=== PATIENT | female | born 1945 | race African-American/Black ===

== ENCOUNTER 2023-07-26 06:16 | Day surgery (SDC) | payer MEDICARE, SELFPAY ==
[2023-07-07 08:42] LABS: % Basophils 0.7 % (0-2); % Eosinophils 2.4 % (0-6); % Immature Granulocytes 0.2 % (0-0.5); % Lymphocytes 30.8 % (20.5-51.1); % Monocytes 6.1 % (1.7-9.3); % Neutrophils 59.8 % (42.2-75.2); Absolute Basophils 0.1 10^3/uL (0-0.2); Absolute Eosinophils 0.3 10^3/uL (0-0.7); Absolute Lymphocytes 3.2 10^3/uL (1.2-3.4); Absolute Monocytes 0.6 10^3/uL (0.1-0.6); Absolute Neutrophils 6.2 10^3/uL (1.4-6.5); Mean Corp Hgb Conc. 33.3 g/dL (33.0-37.0); Mean Corpuscular Hgb 29.6 pg (27.0-31.0); Mean Corpuscular Volume 88.8 fL (81.0-99.0); Mean Platelet Volume 12.2 fL (7.4-10.4); Nucleated Red Blood Cells % 0 %; Platelet Count 197 10^3/uL (130-400); Red Blood Cell Count 4.39 10^6/uL (4.20-5.40); Red Cell Dist. Width 14.4 % (11.5-14.5); White Blood Cell Count 10.4 10^3/uL (4.8-10.8)
[2023-07-07 08:57] VITALS: BMI 26.7
[2023-07-07 09:02] LABS: Blood Urea Nitrogen 25 mg/dl (7-17); Calcium 10.5 mg/dl (8.4-10.2); Carbon Dioxide 28 mmol/L (22-30); Chloride 104 mmol/L (98-107); Estimated Creatinine Clearance 41 ml/min; Glucose 88 mg/dl (70-99); Potassium 4.6 mmol/L (3.5-5.1); Sodium 138 mmol/L (135-145); eGFR 52.08
[2023-07-26 08:43] VITALS: BMI 26.7
[2023-07-26 08:44] VITALS: BP 138/76
[2023-07-26] MEDS: CELEBREX 200 MG PO (08:51)
[2023-07-26] MEDS: NORMOSOL-R 1000 IV (08:51)
[2023-07-26] MEDS: TYLENOL 1000 MG PO (08:51)
[2023-07-26 11:40] VITALS: BP 147/66
[2023-07-26 11:41] VITALS: BP 147/66
[2023-07-26 12:05] VITALS: BP 120/56
[2023-07-26 12:35] VITALS: BP 125/64
== END 2023-07-26 12:46 | disposition home or self-care (01) ==
LOC: SDS 06:16
PROVIDERS: ATTENDING PHYSICIAN Orthopaedic Surgery Hand Surgery; FAMILY PHYSICIAN Family Medicine
DX: S46.012A Strain of muscle(s) and tendon(s) of the rotator cuff of left shoulder, initial encounter (principal); X58.XXXA Exposure to other specified factors, initial encounter; M75.41 Impingement syndrome of right shoulder
CPT/HCPCS: 29827; 29828; 29823; 36415; 80048; 85025; 93005; C1713

== ENCOUNTER → 2023-11-23 14:47 | Outpatient (REF) | payer MEDICARE, SELFPAY | LOC: HWWDC 14:47 | PROVIDERS: ATTENDING PHYSICIAN Internal Medicine Hematology & Oncology; FAMILY PHYSICIAN Family Medicine | DX: Z12.31 Encounter for screening mammogram for malignant neoplasm of breast (principal) | CPT/HCPCS: 77063; 77067 ==

== ENCOUNTER → 2024-08-10 13:22 | Outpatient (REF) | payer MEDICARE, SELFPAY | LOC: MRI 3T 13:22 | PROVIDERS: ATTENDING PHYSICIAN Specialist; FAMILY PHYSICIAN Family Medicine | DX: M17.0 Bilateral primary osteoarthritis of knee (principal); Z85.3 Personal history of malignant neoplasm of breast | CPT/HCPCS: 73721 ==

== ENCOUNTER 2024-09-23 06:13 | Day surgery (SDC) | payer MEDICARE, SELFPAY ==
[2024-09-03 14:17] VITALS: BMI 25.9
[2024-09-03 14:19] LABS: Hematocrit 39.4 % (37.0-47.0); Hemoglobin 12.6 g/dL (12.0-16.0); Mean Corpuscular Hgb 27.9 pg (27.0-31.0); Mean Corpuscular Volume 87.4 fL (81.0-99.0); Mean Platelet Volume 12.4 fL (7.4-10.4); Platelet Count 204 10^3/uL (130-400); Red Blood Cell Count 4.51 10^6/uL (4.20-5.40); Red Cell Dist. Width 13.8 % (11.5-14.5); White Blood Cell Count 10.8 10^3/uL (4.8-10.8)
[2024-09-03 14:45] LABS: ALT (SGPT) 22 U/L (0-35); AST (SGOT) 23 U/L (14-36); Albumin 4.2 g/dl (3.5-5.0); Alkaline Phosphatase 59 U/L (38-126); Blood Urea Nitrogen 18 mg/dl (7-17); Carbon Dioxide 27 mmol/L (22-30); Chloride 105 mmol/L (98-107); Estimated Creatinine Clearance 45 ml/min; Glucose 90 mg/dl (70-99); Potassium 4.5 mmol/L (3.5-5.1); Sodium 138 mmol/L (135-145); Total Bilirubin 0.5 mg/dl (0.2-1.3); eGFR 57.66
[2024-09-03 17:09] VITALS: BMI 25.9
[2024-09-04 09:21] LABS: Glycohemoglobin (HgbA1c) 6.2 % (4.0-5.6)
--- NOTE | 2024-09-09 10:56 | VNURNOTE ---
[facility] protocol
Patient is scheduled for an elective left TKA- she is a same day patient. Spoke with patient prior to surgery. Introduced role of [facility] liaison.
Patient reports that she lives with her son in a MULTI story home. Her sisters will also be staying with her to help.
PCP is Dr. Thompson
Discussed orthopedic program and post surgical plans.
Reviewed that he will have [facility] services initially and will then start outpatient PT on 09/26/24 with [facility]. Patient to make appointment.
Patient is in agreement with plan and states her son and sisters will be staying with her.
Plan: [facility] liasin will remain available to assist with the care of patient and will reassess discharge needs after surgery.
[2024-09-23] VITALS (15 sets, daily range): BP systolic 98–163; BP diastolic 61–79; PULSE 63; O2SAT 97
--- NOTE | 2024-09-23 07:05 | W.DS.TRANS ---
DC Summary - [facility]
-
Discharge Instructions:
Sleep Apnea Risk Low
Discharge Diagnosis/Procedures L TKA 09/23/24
Diet Diabetic, Carb Controlled
Activity As tolerated
Driving Restrictions No driving
Bathing Restrictions OK to Shower
Other Services PT
Instructions:
Stand-Alone Forms: SDS Total Hip and Knee D/C
Changes to Home Medications: Yes
Discharge Medications:
DC Medications w/original date entered in [facility]
atenolol 50 mg tablet 50 mg PO HS 12/10/08
levothyroxine 125 mcg tablet (Levoxyl) 125 mcg PO DAILY 12/10/08
spironolactone 100 mg tablet 100 mg PO HS 12/10/08
denosumab 60 mg/mL subcutaneous syringe (Prolia) 60 mg SC [id number] 07/21/23
Tumeric 500 mg PO HS 07/26/23
ergocalciferol (vitamin D2) 1,250 mcg (50,000 unit) capsule (Vitamin D2) 1,250 mcg PO QWEEK 09/02/24
celecoxib 200 mg capsule (Celebrex) 200 mg PO DAILY #14 caps 09/03/24
dexamethasone 4 mg tablet 4 mg PO BID Anti-inflammatory #7 tabs 09/03/24
famotidine 20 mg tablet (Pepcid) 20 mg PO HS #30 tabs 09/03/24
mupirocin 2 % topical ointment 1 applic intranasal BID #1 tube 09/03/24
ondansetron HCl 4 mg tablet 4 mg PO Q6H PRN nausea and vomiting #30 tabs 09/03/24
hydromorphone 2 mg tablet 2 - 4 mg (1 - 2 x 2 mg) PO Q4H PRN moderate-severe pain #30 tabs 09/13/24
acetaminophen 325 mg tablet (Tylenol) 650 mg (2 x 325 mg) PO QID #1 tab 09/23/24
aspirin 325 mg tablet 325 mg PO DAILY blood clot prevention #1 tab 09/23/24
docusate sodium 100 mg capsule (Colace) 100 mg PO BID stool softner #1 cap 09/23/24
magnesium hydroxide 400 mg/5 mL oral suspension (Milk of Magnesia) 30 ml PO HS PRN Constipation #1 mL 09/23/24
sennosides 8.6 mg tablet (Senokot) 17.2 mg (2 x 8.6 mg) PO BID laxative #2 tabs 09/23/24
Home Medication Changes
celecoxib 200 mg capsule (Celebrex) 200 mg PO DAILY #14 caps 09/03/24
dexamethasone 4 mg tablet 4 mg PO BID Anti-inflammatory #7 tabs 09/03/24
famotidine 20 mg tablet (Pepcid) 20 mg PO HS #30 tabs 09/03/24
mupirocin 2 % topical ointment 1 applic intranasal BID #1 tube 09/03/24
ondansetron HCl 4 mg tablet 4 mg PO Q6H PRN nausea and vomiting #30 tabs 09/03/24
hydromorphone 2 mg tablet 2 - 4 mg (1 - 2 x 2 mg) PO Q4H PRN moderate-severe pain #30 tabs 09/13/24
acetaminophen 325 mg tablet (Tylenol) 650 mg (2 x 325 mg) PO QID #1 tab 09/23/24
aspirin 325 mg tablet 325 mg PO DAILY blood clot prevention #1 tab 09/23/24
docusate sodium 100 mg capsule (Colace) 100 mg PO BID stool softner #1 cap 09/23/24
magnesium hydroxide 400 mg/5 mL oral suspension (Milk of Magnesia) 30 ml PO HS PRN Constipation #1 mL 09/23/24
sennosides 8.6 mg tablet (Senokot) 17.2 mg (2 x 8.6 mg) PO BID laxative #2 tabs 09/23/24
Pending Results: No
[2024-09-23] MEDS: TYLENOL 650 MG PO (07:30)
[2024-09-23] MEDS: CELEBREX 200 MG PO (07:30)
[2024-09-23] MEDS: BACTROBAN NASAL 1 GRAM NASAL (07:31)
[2024-09-23] MEDS: NORMOSOL-R/PLASMALYTE-A 1000 IV (07:31)
[2024-09-23] MEDS: DILAUDID 0.5 MG IV (10:52)
[2024-09-23] MEDS: ANCEF 5 IV (12:47)
== END 2024-09-23 15:10 | disposition home or self-care (01) ==
LOC: SDS 06:13
PROVIDERS: ATTENDING PHYSICIAN Specialist; FAMILY PHYSICIAN Family Medicine; OTHER PHYSICIAN Physician Assistant
DX: M17.12 Unilateral primary osteoarthritis, left knee (principal); M51.369 Other intervertebral disc degeneration, lumbar region without mention of lumbar back pain or lower extremity pain; Z87.891 Personal history of nicotine dependence
CPT/HCPCS: 27447; 36415; 73560; 80053; 83036; 85027; 87070; 93005; 97162; C1713; C1776

== ENCOUNTER → 2024-11-25 10:41 | Outpatient (REF) | payer MEDICARE, SELFPAY | LOC: HWWDC 10:41 | PROVIDERS: ATTENDING PHYSICIAN Family Medicine; REFERRING PHYSICIAN Internal Medicine Hematology & Oncology | DX: Z12.31 Encounter for screening mammogram for malignant neoplasm of breast (principal) | CPT/HCPCS: 77063; 77067 ==